=== PATIENT | female | born 1945 | race Caucasian/White ===

== ENCOUNTER 2017-04-05 13:27 | Day surgery (SDC) | payer OTHER ==
[~2017-04-05] VITALS: Ht 157.5 cm; Wt 74.7 kg
[2017-04-05 14:03] VITALS: Ht 157.5 cm; Wt 74.7 kg
[2017-04-05] MEDS ORDERED: OMEP40CA6 PO (14:13)
[2017-04-05] MEDS ORDERED: METO75TA PO (14:13)
[2017-04-05] MEDS ORDERED: CANA100T PO (14:13)
[2017-04-05] MEDS ORDERED: HYDR12.58 PO (14:13)
[2017-04-05] MEDS ORDERED: METF-731 PO (14:13)
[2017-04-05] MEDS ORDERED: SITA100T8 PO (14:13)
[2017-04-05] MEDS ORDERED: TRAM50TA2 PO (14:14)
[2017-04-05 14:24] VITALS: BP 158/78; PULSE 73; RESP 18
[2017-04-05] MEDS ORDERED: FENTAnyl 50 MCG/ML VIAL ONE (15:52)
[2017-04-05] MEDS ORDERED: MIDAZOLAM 1 MG/ML 2 ML INJ ONE ×2 (15:53)
[2017-04-05 15:55] VITALS: BP 121/64; PULSE 82; RESP 12
--- NOTE | 2017-04-05 16:08 | OPR ---
Date/Time of Note Date/Time of Note DATE: 04/05/17 TIME: 16:06 Operative Report Preoperative Diagnosis * Dyspepsia Postoperative Diagnosis Impression: * Moderate gastritis. Rule out H. pylori infection. Biopsies obtained Plan: * PPI therapy * Review pathology . Operation/Procedure Performed * EGD with biopsy Surgeon: CHARLES IVORY MD Anesthesia: other (Moderate sedation Versed 3 mg/fentanyl 75 mcg) Estimated Blood Loss: none Specimens * Gastric body/antrum Grafts/Implants * None CHARLES IVORY MD Apr 05, 2017 16:08
--- NOTE | 2017-04-05 16:10 | OPR ---
Date/Time of Note Date/Time of Note DATE: 04/05/17 TIME: 16:08 Operative Report Preoperative Diagnosis * Colorectal cancer screening Postoperative Diagnosis Impression: * Moderate-sized internal hemorrhoids * Otherwise normal colonoscopy to cecum Plan: * Annual Hemoccult stool testing * Screening colonoscopy in 10 years * High-fiber diet . . Operation/Procedure Performed * Colonoscopy Surgeon: CHARLES IVORY MD Anesthesia: other (Moderate sedation Versed 3 mg/fentanyl 75 mcg) Estimated Blood Loss: none Specimens * Gastric body/antrum Grafts/Implants * None Complications: None CHARLES IVORY MD Apr 05, 2017 16:10
== END 2017-04-05 16:19 | disposition home or self-care (01) ==
LOC: GIL 13:27
PROVIDERS: ATTEND Internal Medicine Gastroenterology
DX: Z12.11 Encounter for screening for malignant neoplasm of colon (principal); K64.8 Other hemorrhoids; K29.50 Unspecified chronic gastritis without bleeding; E11.9 Type 2 diabetes mellitus without complications; I10 Essential (primary) hypertension; E78.5 Hyperlipidemia, unspecified
CPT/HCPCS: 43239; 45378; 88305; 88312; J2250; J3010; Z7610

== ENCOUNTER 2019-02-09 11:32 | Emergency (ER) | payer OTHER ==
[~2019-02-09] VITALS: Ht 162.6 cm; Wt 70.0 kg
[~2019-02-09 11:32] MED LIST: CANA100T PO; HYDR12.58 PO; METF-731 PO; METO75TA PO; OMEP40CA6 PO; SITA100T11 PO; TRAM50TA2 PO
--- NOTE | 2019-02-09 11:49 | ERD ---
ER Documentation Chief Complaint Chief Complaint lbp HPI The patient is a 73-year-old female, presenting to the ER because of acute low back pain for 1 week, radiating to her right leg, denies fecal/urinary incontinence, denies fever, chills, neck pain, chest pain, dyspnea, abdominal pain, vomiting, dysuria. She does not smoke nor drink Past medical history: Diabetes mellitus, hypertension, dyslipidemia Past surgical history: Cholecystectomy ROS All systems reviewed and are negative except as per history of present illness. Medications Home Meds Active Scripts Hydrocodone/Acetaminophen ([place] 5-325 Tablet) 1 Each Tablet, 1 TAB PO Q6H PRN for PAIN, #7 TAB Prov:SHEREEN MAY MD 02/09/19 Tramadol HCl (Tramadol HCl) 50 Mg Tablet, 50 MG PO Q6 PRN for PAIN, #15 TAB Prov:SHEREEN MAY MD 02/09/19 Reported Medications Ergocalciferol (Vitamin D2) (VITAMIN D2) 50,000 Unit Capsule, [address]226 UNIT PO Q7D, CAP 02/09/19 Ezetimibe* (Zetia*) 10 Mg Tablet, 10 MG PO HS, TAB 02/09/19 Ferrous Sulfate* (Ferrous Sulfate*) 325 Mg Tabec, 325 MG PO DAILY, TAB 02/09/19 Canagliflozin (Invokana) 100 Mg Tablet, 100 MG PO DAILY, TAB 02/09/19 [id number]-Bnlrcyq* (Ayaz CARO* 24,000) 24,000 L-76,000-120,000 Unit Capsule.dr, 1 CAP PO WITH MEALS, CAP 02/09/19 Atorvastatin* (Atorvastatin*) 40 Mg Tablet, 40 MG PO QHS, #30 TAB 02/09/19 Sitagliptin* (Januvia*) 100 Mg Tablet, 100 MG PO DAILY, #30 TAB 02/09/19 Omeprazole* (Omeprazole*) 40 Mg Capsule.dr, 40 MG PO DAILY, #30 CAP 02/09/19 Metformin Hcl* (Metformin Hcl*) 1,000 Mg Tablet, 1000 MG PO WITH BREAKFAST DINNE, #60 TAB 02/09/19 Hydrochlorothiazide* (Hydrochlorothiazide*) 12.5 Mg Tablet, 12.5 MG PO DAILY, #30 TAB 02/09/19 Gabapentin* (Gabapentin*) 100 Mg Capsule, 100 MG PO NEEDED, #90 CAP 02/09/19 Ranitidine Hcl* (Ranitidine Hcl*) 150 Mg Tablet, 150 MG PO HS, #30 TAB 02/09/19 Metoprolol Tartrate* (Lopressor*) 50 Mg Tab, 50 MG PO BID, #60 TAB 02/09/19 Clonidine Hcl* (Clonidine Hcl*) 0.1 Mg Tab, 0.1 MG PO NEEDED, TAB 02/09/19 Discontinued Reported Medications Tramadol HCl (Tramadol HCl) 50 Mg Tablet, 50 MG PO Q6 PRN for PAIN, #120 TAB 04/05/17 Metformin HCl (Metformin HCl ER) 1,000 Mg [id number], 1000 MG PO BID, TAB 04/05/17 Sitagliptin* (Januvia*) 100 Mg Tablet, 100 MG PO DAILY, #30 TAB 04/05/17 Canagliflozin (Invokana) 100 Mg Tablet, 100 MG PO DAILY, TAB 04/05/17 Omeprazole* (Omeprazole*) 40 Mg Capsule.dr, 40 MG PO DAILY, #30 CAP 04/05/17 Hydrochlorothiazide* (Hydrochlorothiazide*) 12.5 Mg Tablet, 12.5 MG PO DAILY, #30 TAB 04/05/17 Metoprolol Tartrate (Metoprolol Tartrate) 75 Mg Tablet, 50 MG PO BID, TAB 04/05/17 Allergies Allergies: Coded Allergies: acetaminophen (Verified Adverse Reaction, Severe, SOB, 02/09/19) hydrocodone (Verified Adverse Reaction, Severe, SOB, 02/09/19) PMhx/Soc History of Surgery: No Anesthesia Reaction: No Hx Neurological Disorder: No Hx Respiratory Disorders: No Hx Cardiac Disorders: Yes (HTN) Hx Psychiatric Problems: No Hx Miscellaneous Medical Probl: Yes (DYSLIPEDEMIA) Hx Alcohol Use: No Hx Substance Use: No Hx Tobacco Use: No Smoking Status: Never smoker Physical Exam Physical Exam Const: No acute distress. Head: Atraumatic. Eyes: Normal Conjunctiva. ENT: Normal External Ears, Nose and Mouth. Neck: Full range of motion. No meningismus. Resp: Clear to auscultation bilaterally. Cardio: Regular rate and rhythm. Abd: Soft, non distended, normal bowel sounds, non tender. Skin: No petechiae or rashes. Back: No midline or flank tenderness. Positive for right lower extremity straight leg raising test Ext: No cyanosis, or edema. Neur: Awake and alert. No focal deficit Psych: Normal Mood and Affect. Results 24 hrs Laboratory Tests Test 02/09/19 12:45 Bedside Glucose 150 mg/dL Current Medications Medications Dose Sig/Dangelo Start Time Status Last (Trade) Ordered Route PRN Stop Time Admin Dose Reason Admin Morphine 2 mg ONCE STAT 02/09/19 DC 02/09/19 Sulfate IM 12:03 02/09/19 12:11 (morphine) 12:05 Ondansetron 4 mg ONCE STAT 02/09/19 DC 02/09/19 HCl (Zofran ODT 12:03 02/09/19 12:10 Odt) 12:05 Procedures/[place] [id number] Radiology Main Line: [phone] DIAGNOSTIC IMAGING REPORT Patient: LAUREN CASE : 1945 Age: 73 Sex: F MR #: [id number] DOS: 02/09/19 1204 Ordering MD: SHEREEN MAY MD Location: E/R Room/Bed: PROCEDURE: CT L-Spine. CLINICAL INDICATION: Back pain TECHNIQUE: A CT of the lumbar spine was performed on a GE Mobi[employer]peed 64-slice CT scanner utilizing high-resolution thin section axial images from the thoracic lumbar junction through the lumbar sacral junction. Sagittal and coronal and multiplanar reformatted images were made.The CTDIvol is 21.49 mGy and the DLP is 475.92 mGycm. DICOM images are available. One or more of the following dose reduction techniques were utilized: 1.) Automated exposure control 2.) Adjustment of the mA +/- kV according to patient's size 3.) Use of iterative reconstruction technique. COMPARISON: None available FINDINGS: No acute fracture or loss vertebral body height. Normal lordosis without vertebral body subluxation. Moderate calcified arterial atherosclerosis. No acute appearing soft tissue abnormality. L1-2: Mild disc height loss with vacuum phenomena. Mild diffuse disc bulging and endplate osteophytic ridging. No significant central canal or foraminal stenosis. L2-3: The disk is normal in height. Minimal annular bulging. No significant central canal or foraminal stenosis. L3-4: The disk is normal in height. 3 mm left foraminal disc protrusion which contributes to mild to moderate left foraminal stenosis. Central canal right neural foramen are adequate patent. L4-5: The disk is normal in height. 4 mm broad-based disc bulge with mild left eccentric extension. Mild to moderate facet arthropathy with ligamentum flavum thickening. There is mild narrowing of the central canal right neural foramen, and moderate left foraminal stenosis. L5-S1: Mild disc height loss. Mild diffuse disc bulging and endplate osteophytic ridging. Moderate facet arthropathy. Findings result in moderate bilateral foraminal stenosis. Central canal appears patent. Moderate arthrosis of the SI joints bilaterally with vacuum phenomena. IMPRESSION: No evidence of acute fracture of the lumbar spine. Mild degenerate disc disease, most pronounced L1-L2 and L5-S1. At L3-L4 there is a small left foraminal disc protrusion which contributes to mild to moderate left foraminal stenosis. At L4-L5 there is disc bulging with mild left eccentric extension, and mild to moderate facet arthropathy which contributes to mild narrowing of the central canal, right neural foramen, and moderate stenosis of the left neural foramen. At L5-S1 there is disc bulging and moderate facet arthropathy contributing to moderate, left greater than right, bilateral foraminal stenosis. RPTAT:AAJJ Physician Quan Date Time Electronically viewed and signed by Physician Quan on 02/09/2019 12:42 RF/ CC: SHEREEN MAY MD [phone] MEDICAL MAKING DECISION: The patient is a 73-year-old female, presenting with acute low back pain with right sciatica, was treated with morphine 2 mg IV for pain, Zofran IV for nausea with good response, is stable for present follow-up The differential diagnoses considered include but are not limited to caudal equina syndrome, spinal abscess, DJD, diskitis, lumbar radiculopathy. Departure Diagnosis: Primary Impression: Back pain with right-sided sciatica Condition: Good Comments She was discharged with tramadol I discussed the findings with the patient. I advised the patient to follow-up with the primary physician in about 2-3 days for reevaluation and back MRI for further evaluation, sooner if needed and return if any concern. Disclaimer: Inadvertent spelling and grammatical errors are likely due to EHR/dictation software use and do not reflect on the overall quality of patient care. Also, please note that the electronic time recorded on this note does not necessarily reflect the actual time of the patient encounter. SHEREEN MAY MD Feb 09, 2019 11:49
[2019-02-09 11:58] VITALS: Ht 162.6 cm; Wt 70.0 kg
[2019-02-09] MEDS ORDERED: morphine 2 MG INJ IM STA (12:03)
[2019-02-09] MEDS ORDERED: ONDANSETRON (ODT) 4 MG TAB ODT STA (12:03)
[2019-02-09] MEDS ORDERED: CLON-379 PO (14:06)
[2019-02-09] MEDS ORDERED: RANI150T5 PO (14:07)
[2019-02-09] MEDS ORDERED: METO-429 PO (14:07)
[2019-02-09] MEDS ORDERED: METF100010 PO (14:08)
[2019-02-09] MEDS ORDERED: GABA100C14 PO (14:08)
[2019-02-09] MEDS ORDERED: HYDR12.58 PO (14:08)
[2019-02-09] MEDS ORDERED: SITA100T11 PO (14:09)
[2019-02-09] MEDS ORDERED: ATOR40TA68 PO (14:09)
[2019-02-09] MEDS ORDERED: OMEP40CA6 PO (14:09)
[2019-02-09] MEDS ORDERED: LIPA1CAP6 PO (14:10)
[2019-02-09] MEDS ORDERED: CANA100T PO (14:10)
[2019-02-09] MEDS ORDERED: FER325 PO (14:12)
[2019-02-09] MEDS ORDERED: EZET10TA31 PO (14:12)
[2019-02-09] MEDS ORDERED: ERGO500013 PO (14:13)
[2019-02-09] MEDS ORDERED: TRAM50TA2 PO (14:14)
[2019-02-09 14:45] VITALS: BP 143/82; PULSE 87; RESP 18
[2019-02-09] MEDS ORDERED: HYDR-4011 PO (14:54)
== END 2019-02-09 15:08 | disposition home or self-care (01) ==
LOC: E/R 11:32
DX: M54.41 Lumbago with sciatica, right side (principal); I10 Essential (primary) hypertension; E11.9 Type 2 diabetes mellitus without complications; Z79.84 Long term (current) use of oral hypoglycemic drugs
CPT/HCPCS: 72131; 82962; 96372; J2270; Z7502; Z7610